=== PATIENT | female | born 1995 | race Two or more races ===

== ENCOUNTER 2017-09-22 02:45 | Emergency (ER) | payer SELFPAY ==
[~2017-09-22] VITALS: Ht 162.6 cm; Wt 68.0 kg
--- NOTE | 2017-09-22 02:42 | Emergency Room Report ---
History of Present Illness General Chief Complaint: Alcohol Intoxication Source: Patient, EMS Present Illness HPI This is a 21-year-old [place] female who presents with chief complaint of alcohol intoxication. She was at a nearby hotel following constitution party. She was drinking heavily. EMS called because she was passed out. No trauma. No other injury. Allergies: Coded Allergies: SHRIMP (Verified Allergy, Unknown, 09/22/17) Patient History Past Medical History: none, see triage record, old chart reviewed Past Surgical History: none Pertinent Family History: none Social History: Reports: alcohol use Now: No Immunizations: other Reviewed Nursing Documentation: PMH: Agreed, PSxH: Agreed Nursing Documentation-PMH Past Medical History: No Stated History Review of Systems Eye: Denies: eye pain, blurred vision ENT: Denies: ear pain, nose congestion, throat swelling Respiratory: Denies: cough, shortness of breath Cardiovascular: Denies: chest pain, palpitations Gastrointestinal: Denies: abdominal pain, diarrhea, nausea, vomiting Musculoskeletal: Denies: back pain, joint pain Skin: Denies: rash Neurological: Denies: headache, numbness Endocrine: Denies: increased thirst, increased urine Hematologic/Lymphatic: Denies: easy bruising All Other Systems: negative except mentioned in HPI Physical Exam Vital Signs Date Time Temp Pulse Resp B/P (MAP) Pulse Ox O2 Delivery O2 Flow Rate FiO2 09/22/17 02:36 98.1 62 18 106/62 98 Room Air vitals normal Sp02 EP Interpretation: reviewed, normal General Appearance: well appearing, no apparent distress, alert, other - Intoxicated Head: normocephalic, atraumatic Eyes: bilateral eye PERRL, bilateral eye EOMI ENT: hearing grossly normal, normal pharynx Neck: full range of motion, supple, no meningismus Respiratory: chest non-tender, lungs clear, normal breath sounds Cardiovascular #1: regular rate, rhythm, no murmur Gastrointestinal: normal bowel sounds, non tender, no mass, no organomegaly, no bruit, non-distended Musculoskeletal: back normal, normal range of motion Neurologic: grossly normal Psychiatric: mood/affect normal Skin: warm/dry Medical Decision Making Diagnostic Impression: Primary Impression: Acute alcoholic intoxication Qualified Codes: F10.929 - Alcohol use, unspecified with intoxication, unspecified ER Course Patient presents with alcohol intoxication. No trauma to warrant x-ray or CT scan. We'll watch until clinical sobriety. Last Vital Signs Date Time Temp Pulse Resp B/P (MAP) Pulse Ox O2 Delivery O2 Flow Rate FiO2 09/22/17 02:36 98.1 62 18 106/62 98 Room Air Status: improved Disposition: HOME, SELF-CARE Condition: Stable Patient Instructions: Alcohol Intoxication, Bfin-no-Ooop Additional Instructions: Followup with your Dr. in 7 days. Return if worse. REAGAN SHERWOOD M.D. Sep 22, 2017 02:42
[2017-09-22 03:58] VITALS: BP 81/51
[2017-09-22 05:39] VITALS: BP 83/46
[2017-09-22 06:13] VITALS: BP 96/78
== END 2017-09-22 06:14 | disposition home or self-care (01) ==
LOC: EDBD 02:45 → EMR 03:10
DX: F10.129 Alcohol abuse with intoxication, unspecified (principal); Z91.013 Allergy to seafood
CPT/HCPCS: 96360; 99284